=== PATIENT | female | born 1995 | race Two or more races ===

== ENCOUNTER 2016-09-17 14:21 | Emergency (ER) | payer BC ==
[2016-09-17 15:27] VITALS: BP 118/69
--- NOTE | 2016-09-17 16:40 | ED ---
Throat Pain/Nasal Congestion - HPI Summary HPI Summary: Patient arrives to ED with bilateral upper jaw pain over molars bilaterally and right lower jaw pain over back molars. Patient states she recently had 1 wisdom tooth removed in the back upper right. States dentist had informed her she would need the rest out, but couldn't afford it at the time. Tooth pain had improved after extraction. She now presents with return of pain and concern for infection. Patient states this is similar to the pain before the extraction but is now presenting on both sides. Denies fever. Has tried motrin without relief. She has also been using hot and cold packs to the area without relief. Denies other pain. Allergy to tramadol and flexeril. Pain radiates to ears bilaterally and neck on L side. - History of Current Complaint Chief Complaint: EDDentalPain Time Seen by Provider: 09/17/16 15:57 Hx Obtained From: Patient Onset/Duration: Gradual Onset Severity: Moderate - Epiglottits Risk Factors Epiglottis Risk Factors: Negative - Allergies/Home Medications Allergies/Adverse Reactions: Allergies Allergy/AdvReac Type Severity Reaction Status Date / Time Tramadol Allergy Mild Rash Verified 09/17/16 14:50 PMH/Surg Hx/FS Hx/Imm Hx Previously Healthy: Yes Endocrine/Hematology History: Denies: Hx Diabetes Cardiovascular History: Denies: Hx Congestive Heart Failure, Hx Hypertension History: Denies: Hx Renal Disease Infectious Disease History: No Infectious Disease History: Denies: Traveled Outside the [place] in Last 30 Days - Social History Occupation: Employed Full-time Lives: Alone Alcohol Use: None Hx Substance Use: No Substance Use Type: Reports: None Hx Tobacco Use: Yes Smoking Status (MU): Heavy Every Day Tobacco Smoker Review of Systems Constitutional: Negative Positive: Dental Pain Cardiovascular: Negative Respiratory: Negative Genitourinary: Negative Musculoskeletal: Negative Neurological: Negative Psychological: Normal All Other Systems Reviewed And Are Negative: Yes Physical Exam Triage Information Reviewed: Yes Vital Signs On Initial Exam: Initial Vitals Temp Pulse Resp BP Pulse Ox 98.2 F 104 16 123/85 99 09/17/16 14:35 09/17/16 14:35 09/17/16 14:35 09/17/16 14:35 09/17/16 14:35 Vital Signs Reviewed: Yes Appearance: Positive: Well-Appearing, No Pain Distress, Well-Nourished Skin: Positive: Warm, Skin Color Reflects Adequate Perfusion, Dry Eyes: Positive: Normal, EOMI, Conjunctiva Clear Dental: Positive: Percussion Tenderness @ - upper and lower mandible, Dental Fracture @ - right canine Neck: Positive: Nontender, No Lymphadenopathy Respiratory/Lung Sounds: Positive: Breath Sounds Present Cardiovascular: Positive: Normal, RRR, Pulses are Symmetrical in both Upper and Lower Extremities Musculoskeletal: Positive: Normal, Strength/ROM Intact Neurological: Positive: Normal, Sensory/Motor Intact, Speech Normal Psychiatric: Positive: Normal Diagnostics - Vital Signs Vital Signs Temp Pulse Resp BP Pulse Ox 09/17/16 15:25 97.9 F 98 16 118/69 99 09/17/16 14:35 98.2 F 104 16 123/85 99 - Laboratory Lab Statement: Any lab studies that have been ordered have been reviewed, and results considered in the medical decision making process. EENT Course/Dx - Course Course Of Treatment: Patient arrives 2 month s/p extraction of right upper molar. Dentist states patient will need all 4 molars removed, but patient cannot afford it at this time. Previos infections in the upper molar cavities bilaterally. Feels similar. No obvious signs of infections noted. No dental abscess or lesions seen over area of concern. No erythema at site of pain. No drainage from area. Several dental caries, cavities, crowding and broken teeth throughout. Pain on palpation over mandible. S/p extraction of upper right molar without noticable infection in cavity. No TMJ tenderness. No pain with opening and closing mouth. No trismus. Poor dental hygiene and outpatient dental care. Will treat for possible dental infection/abscess based on symptoms of pain and radiation to jaw and ear. No allergies. Will treat with Augmentin. Patient to follow up immediately with dentist. - Differential Diagnoses Differential Diagnoses: Dental Abscess, Dental Caries, Odontogenic Pain, Post- Extraction Pain, TMJ Syndrome - Diagnoses Provider Diagnoses: Pain, dental Discharge - Discharge Plan Condition: Stable Disposition: HOME Prescriptions: Amoxicillin/Clavulanate TAB* [Augmentin TAB 875*] 875 mg PO BID #14 tab MDD 2 Hydrocodone-Acetaminophen [Lorcet Plus 7.5-325 mg] 1 tab PO QID PRN #8 tab MDD 4 PRN Reason: Pain Patient Education Materials: Toothache (ED) Referrals: Morgan HAMPTON,Cal De Jesus [Primary Care Provider] - Additional Instructions: You have been diagnosed with dental pain with possible infection: Antibiotics as prescribed to you. 875-mg tablet of AUGMENTIN twice daily. To minimize the potential for gastrointestinal intolerance, AUGMENTIN should be taken at the start of a meal. If you have any questions about your medication, please contact us or ask your pharmacist. Salt water rinses several times per day will improve healing time. Ibuprofen 600mg three times daily with meals for discomfort. Follow up with a dentist for routine care to prevent recurrence of infections. If fever, worsening pain or swelling develops, see your PCP, dentist or come back to the Emergency Department. Images - Images Dental: 1 - cracked tooth 2 - pain on palpation 3 - pain on palpation with cracked tooth 4 - s/p extraction - cavity without infection
== END 2016-09-17 16:51 | disposition home or self-care (01) ==
LOC: ED 14:21
DX: K08.89 Other specified disorders of teeth and supporting structures (principal); K03.81 Cracked tooth; F17.210 Nicotine dependence, cigarettes, uncomplicated
CPT/HCPCS: 99281

== ENCOUNTER 2023-04-19 10:37 | Inpatient (IN) ==
[2023-04-19] MEDS ORDERED: Nalbuphine 10 MG/ML 1 ML VIAL IV PRN (11:19)
[2023-04-19] MEDS ORDERED: Lactated Ringers 1000 ml BAG 1,000 ML IV ONE (11:19)
[2023-04-19] MEDS ORDERED: Promethazine INJ(RESTRICTED) 25 MG/ML 1 ml VIAL IV PRN (11:19)
[2023-04-19] MEDS ORDERED: miSOPROStol 100 mcg TAB VAGINAL ONE ×2 (11:19→16:55)
[2023-04-19] MEDS ORDERED: Buffered Lidocaine 1% SYRIN 1 ml INTRADERM ONE (11:19)
[2023-04-19] MEDS ORDERED: Lidocaine 1% VIAL 10 MG/ML 30 ML VIAL INJ PRN (11:19)
[2023-04-19 12:23] LABS: ABS Eosinophils 0.1 10^3/uL (0.0-0.5); ABS Lymphocytes 1.6 10^3/uL (1.0-4.8); ABS Monocytes 0.5 10^3/uL (0.0-0.9); ABS Neutrophils 8.7 10^3/uL (1.5-7.6); Eosinophil % 1.2 %; Hemoglobin 12.9 g/dL (11.5-14.3); Lymphocyte % 14.3 %; Mean Corpuscular Hemoglobin 31.3 pg (27-33); Mean Corpuscular Hgb Conc 34.9 g/dL (31-36); Mean Corpuscular Volume 89.6 fL (80-97); Mean Platelet Volume 9.4 fL (7.5-11.2); Platelet Count 295 10^3/uL (150-450); Red Blood Count 4.13 10^6/uL (3.63-4.92); Red Cell Distribution Width 14.1 % (12-17)
[2023-04-19] MEDS: Lactated Ringers 1000 ml BAG 1,000 ML IV SCH (12:23)
[2023-04-19 12:29] LABS: Urine Appearance Cloudy; Urine Bilirubin Negative (Negative); Urine Blood Negative (Negative); Urine Color Yellow; Urine Glucose Negative (Negative); Urine Ketones Negative (Negative); Urine Nitrite Negative (Negative); Urine Protein Negative (Negative); Urine Specific Gravity 1.013 (1.002-1.030); Urine Urobilinogen Negative (Negative)
[2023-04-19 13:25] LABS: Urine Benzodiazepine Screen None Detected (None Detect); Urine Cannabinoids Screen Presumptive Positive (None Detect); Urine Opiates Screen None Detected (None Detect)
[2023-04-19] MEDS ORDERED: Albuterol HFA INHALER 8 gm MDI INH PRN (17:15)
[2023-04-19] MEDS ORDERED: Calcium Carb (TUMS) 500 mg CHEW TAB PO PRN (17:16)
[2023-04-19] MEDS ORDERED: Dinoprostone 10 MG VAG.SUPP VAGINAL ONE (21:17)
[2023-04-20] MEDS ORDERED: Lidocaine 1.5% EPI 1:200,000 30 ML SDV ONE (12:55)
[2023-04-20] MEDS: Lactated Ringers 1000 ml BAG 1,000 ML IV SCH ×3 (12:55→14:01)
[2023-04-20] MEDS ORDERED: OBEPIDURAL (200 ML) 200 ML EPIDURAL ONE (12:55)
[2023-04-20] MEDS ORDERED: Sodium Citrate/Citric Acid LIQ 15 ML UDC PO PRN (14:07)
[2023-04-20] MEDS ORDERED: Phenylephrine 40 mcg/mL 10mL (400mcg) SYRINGE IV PUSH PRN ×2 (14:07)
[2023-04-20] MEDS ORDERED: Lactated Ringers 1000 ml BAG 1,000 ML IV ONE (14:07)
[2023-04-20] MEDS ORDERED: Oxytocin in LR 20,000 MILLI.UNIT/1,000 ML BAG IV SCH ×2 (14:50→22:55)
[2023-04-20] MEDS ORDERED: Lactated Ringers 1000 ml BAG 1,000 ML IV SCH ×2 (15:00→23:00)
[2023-04-20] MEDS ORDERED: OBEPIDURAL (200 ML) 200 ML EPIDURAL SCH (15:00)
[2023-04-20] MEDS ORDERED: D5LR 1000 ml BAG 1,000 ML IV SCH (17:00)
[2023-04-20] MEDS ORDERED: ceFOXitin 2 GM IVPREMIX 2 GM/50 ML BAG IVPB ONE (20:19)
[2023-04-20] MEDS ORDERED: Ondansetron 4 mg VIAL 2 MG/ML 2 ml VIAL IV ONE (20:25)
[2023-04-20] MEDS ORDERED: fentaNYL 100 mcg/2 ml 50 MCG/ML VIAL ONE ×2 (20:56→21:46)
[2023-04-20] MEDS ORDERED: Scopolamine 1 mg/72hr PATCH ONE (20:56)
[2023-04-20] MEDS ORDERED: Chloroprocaine 3% 20 ml VIAL ONE (20:56)
[2023-04-20] MEDS ORDERED: Morphine PF AMP (0.5MG/ML) 5 MG/10 ML AMP ONE (20:56)
[2023-04-20] MEDS ORDERED: Phenylephrine 40 mcg/mL 10mL (400mcg) SYRINGE ONE ×2 (20:56→21:36)
[2023-04-20] MEDS ORDERED: Oxytocin 10 UNITS/ML 1 ML VIAL ONE (20:56)
[2023-04-20] MEDS ORDERED: Lidocaine 2% PF 10 ML AMP (OR) ONE (20:56)
[2023-04-20] MEDS ORDERED: Acetaminophen IV 1 GM/100ML 1,000 MG/100 ML BAG IV ONE (21:35)
[2023-04-20] MEDS ORDERED: Ondansetron 4 mg VIAL 2 MG/ML 2 ml VIAL ONE (22:42)
[2023-04-20] MEDS ORDERED: Witch Hazel PAD JAR TOPICAL PRN (22:51)
[2023-04-20] MEDS ORDERED: Glycerin ADULT 2.4 gm SUPP PR PRN (22:51)
[2023-04-20] MEDS ORDERED: Dibucaine 1% OINT 28.35 GM TUBE PR PRN (22:51)
[2023-04-21] MEDS ORDERED: Naloxone 0.4 mg VIAL 0.4 mg/ml 1 ml VIAL IV PUSH PRN (00:19)
[2023-04-21] MEDS ORDERED: Ondansetron 4 mg VIAL 2 MG/ML 2 ml VIAL IV PRN (00:19)
[2023-04-21] MEDS ORDERED: Acetaminophen IV 1 GM/100ML 1,000 MG/100 ML BAG IV PRN (00:19)
[2023-04-21] MEDS ORDERED: Metoclopramide 5 MG/ML VIAL (10 mg) IV PRN (00:19)
[2023-04-21] MEDS ORDERED: Naloxone 0.4 mg VIAL 0.4 mg/ml 1 ml VIAL IV PRN (00:21)
[2023-04-21 07:25] LABS: ABS Basophils 0.1 10^3/uL (0.0-0.1); ABS Eosinophils 0.1 10^3/uL (0.0-0.5); ABS Lymphocytes 1.8 10^3/uL (1.0-4.8); ABS Monocytes 0.6 10^3/uL (0.0-0.9); ABS Neutrophils 7.9 10^3/uL (1.5-7.6); Eosinophil % 1.1 %; Hemoglobin 10.4 g/dL (11.5-14.3); Lymphocyte % 17.2 %; Mean Corpuscular Hemoglobin 31.3 pg (27-33); Mean Corpuscular Hgb Conc 34.7 g/dL (31-36); Mean Corpuscular Volume 90.3 fL (80-97); Mean Platelet Volume 8.4 fL (7.5-11.2); Platelet Count 208 10^3/uL (150-450); Red Blood Count 3.32 10^6/uL (3.63-4.92); Red Cell Distribution Width 14.2 % (12-17); White Blood Count 10.5 10^3/uL (3.8-11.8)
[2023-04-23 08:23] VITALS: BP 135/58
== END 2023-04-23 12:35 | disposition home or self-care (01) | DRG 540 ==
LOC: MCHOBOUT 10:37 → MCHOB 11:15
PROVIDERS: ADMIT Obstetrics & Gynecology; ATTEND Obstetrics & Gynecology